=== PATIENT | female | born 1945 | race Two or more races ===

== ENCOUNTER 2021-09-15 07:15 | Inpatient (IN) | payer OTHER ==
[2021-09-15] MEDS ORDERED: [UNRECOGNIZED DRUG - OTHER] PO (09:59)
[2021-09-15] MEDS ORDERED: LOSART PO (09:59)
[2021-09-15] MEDS ORDERED: ARICEPT10 MG PO (10:00)
[2021-09-15] MEDS ORDERED: CRESTOR20 MG PO (10:00)
[2021-09-15] MEDS ORDERED: DITROPAN XL10 MG PO (10:00)
[2021-09-15] MEDS ORDERED: SEROQ PO (10:01)
[2021-09-22] MEDS ORDERED: ESCITALOPRAM OX10 MG (11:49)
[2021-09-22] MEDS ORDERED: MEMANTINE HCL10 MG (11:50)
[2021-09-22] MEDS ORDERED: QUETIAPINE FUM100 MG (11:50)
[2021-09-22] MEDS ORDERED: VALSARTAN80 MG (11:50)
[2021-09-22] MEDS ORDERED: SERTRALINE HCL50 MG (11:50)
[2021-09-22] MEDS ORDERED: NORVASC2.5 MG (11:50)
[2021-09-22] MEDS ORDERED: RISPERIDONE0.5 MG (11:50)
[2021-09-22] MEDS ORDERED: TRAZODONE HCL50 MG (11:50)
[2021-09-22] MEDS ORDERED: LOSARTAN POTAS100 MG (11:50)
[2021-09-24] MEDS ORDERED: NORFLEX100MG PO (11:41)
[2021-09-24] MEDS ORDERED: OXYC1TAB9 PO (11:41)
[2021-09-24] MEDS ORDERED: XARELTO10 MG PO (11:42)
== END 2021-09-24 18:19 | DRG 467 ==
LOC: SURH 09-22 07:15 → O/R 09-22 09:09 → SURH 09-22 10:15
PROVIDERS: ADMIT Orthopaedic Surgery; ATTEND Orthopaedic Surgery
PROC: 0SPD09Z Removal of Liner from Left Knee Joint, Open Approach (ICD-10-PCS; 2021-09-22)
PROC: 0SUW09Z Supplement Left Knee Joint, Tibial Surface with Liner, Open Approach (ICD-10-PCS; 2021-09-22)
PROC: 0SWU0JZ Revision of Synthetic Substitute in Left Knee Joint, Femoral Surface, Open Approach (ICD-10-PCS; principal; 2021-09-22 10:15)
DX: T84.093A Other mechanical complication of internal left knee prosthesis, initial encounter (principal); M86.052 Acute hematogenous osteomyelitis, left femur; M85.662 Other cyst of bone, left lower leg; M65.862 Other synovitis and tenosynovitis, left lower leg; Z20.822 Contact with and (suspected) exposure to COVID-19; Y83.8 Other surgical procedures as the cause of abnormal reaction of the patient, or of later complication, without mention of misadventure at the time of the procedure; Y92.018 Other place in single-family (private) house as the place of occurrence of the external cause

== ENCOUNTER 2021-11-25 18:38 | Inpatient (IN) | payer OTHER ==
[~2021-11-25] VITALS: Ht 99.1 cm; Wt 5.0 kg
[~2021-11-25 18:38] MED LIST: ARICEPT10 MG PO; CRESTOR20 MG PO; DITROPAN XL10 MG PO; ESCITALOPRAM OX10 MG; LOSART PO; LOSARTAN POTAS100 MG; MEMANTINE HCL10 MG; NORFLEX100MG PO; NORVASC2.5 MG; OXYC1TAB9 PO; QUETIAPINE FUM100 MG; RISPERIDONE0.5 MG; SEROQ PO; SERTRALINE HCL50 MG; TRAZODONE HCL50 MG; VALSARTAN80 MG; XARELTO10 MG PO; [UNRECOGNIZED DRUG - OTHER] PO
--- NOTE | 2021-11-25 19:15 | NUR ---
PTE SE RECIBE POR RODILLA IZQUIERDA INFLAMADA REFIERE PARAMEDICO Y FAMILIAR.
--- NOTE | 2021-11-25 19:26 | NUR ---
FLY ESPINOZA ORIENTA A PTE SOBRE TRATAMIENTO A SEGUIR, ANATOLIY REFIERE ENTENDER. LE COLECTA MUESTRAS, LA CANALIZA Y LE ADMINISTRA MEDICAMENTO PIERRE ORDEN MEDICA UTILIZANDO MEDIDAS ASEPTICAS. PENDINETE DERRICK X
--- NOTE | 2021-11-26 01:02 | NUR ---
SE RECIBE PTE DEL TURNO ANTERIOR, ALERTA, EN COMPANIA DE FAMILIAR (HIJA), UBICADA EN TJ NIVEL MAS BAJO, LIU DE IDENTIFICACION Y BARANDAS ELEVADAS POR PRECAUCION. SE OBSERVA CON BUEN PATRON RESPIRATORIO Y PIEL TIBIA AL TACTO. S/L PATENTE Y GISELL DE EDEMA O ERITEMA. LOOMIS PATENTE CON FECHA DE 11/25/21. PENDIENTE CONSULTA CON DR MARRERO. SE MANTIENE BAJO OBSERVACION.
--- NOTE | 2021-11-26 07:30 | NUR ---
SE RECIBE PTE EN EL AREA DE OBSERVACION EN TJ CON BARANDAS ELEVADA Y TIMBRE ACCESIBLE PTE DESORIENTADA AL MOMETNO, SE OBSERVA VENOPUNCION PATENTE Y GISELL DE EDEMA, LOOMIS DRENADO ORINA DE COLOR AMARAILLO, PTE SE MANTIENE EN OBSERVACION Y BAJO TRATAMIENTO EN ESPERA DE LA BOGDAN MARRERO.
[2021-11-30] MEDS ORDERED: ATORVASTATIN CA20 MG (15:54)
[2021-11-30] MEDS ORDERED: PANTOPRAZOLE SO40 MG (15:54)
== END 2021-12-03 17:49 | DRG 486 ==
LOC: ER 18:38 → SURH 11-26 13:13 → SEC-K 11-26 13:13 → SURH 11-26 17:29
PROVIDERS: ADMIT Orthopaedic Surgery; ATTEND Orthopaedic Surgery
PROC: 0SPD09Z Removal of Liner from Left Knee Joint, Open Approach (ICD-10-PCS; 2021-11-27)
PROC: 0SUW09Z Supplement Left Knee Joint, Tibial Surface with Liner, Open Approach (ICD-10-PCS; 2021-11-27)
PROC: 0SBD0ZZ Excision of Left Knee Joint, Open Approach (ICD-10-PCS; principal; 2021-11-27 12:15)
DX: T84.54XA Infection and inflammatory reaction due to internal left knee prosthesis, initial encounter (principal); L03.116 Cellulitis of left lower limb; I10 Essential (primary) hypertension; G30.9 Alzheimer's disease, unspecified; F02.80 Dementia in other diseases classified elsewhere, unspecified severity, without behavioral disturbance, psychotic disturbance, mood disturbance, and anxiety; Z20.822 Contact with and (suspected) exposure to COVID-19; B95.61 Methicillin susceptible Staphylococcus aureus infection as the cause of diseases classified elsewhere